=== PATIENT | female | born 1990 | race Caucasian/White ===

== ENCOUNTER → 2016-09-01 | Outpatient (REF) | payer OTHER | LOC: M LAB REF 16:42 | PROVIDERS: ATTEND Physician Assistant | DX: J03.90 Acute tonsillitis, unspecified (principal) ==

== ENCOUNTER → 2016-11-18 | Outpatient (CLI) | payer OTHER ==
[2016-11-18 17:12] LABS: ALBUMIN 3.4 GM/DL (3.2-5.2); ALBUMIN/GLOBULIN RATIO 0.87 (1.00-1.93); ALKALINE PHOSPHATASE 56 U/L (45-117); ALT/SGPT 18 U/L (12-78); ANION GAP 7 MEQ/L (8-16); AST/SGOT 9 U/L (15-37); BILIRUBIN,TOTAL 0.4 MG/DL (0.2-1.0); BLOOD UREA NITROGEN 14 MG/DL (7-18); CALCIUM LEVEL 8.7 MG/DL (8.5-10.1); CARBON DIOXIDE LEVEL 27 MEQ/L (21-32); CHLORIDE LEVEL 106 MEQ/L (98-107); CHOLESTEROL LEVEL 166 MG/DL (<200); CREATININE FOR GFR 0.74 MG/DL (0.55-1.02); FREE T4 1.01 NG/DL (0.76-1.46); GLOMERULAR FILTRATION RATE > 60.0 (>60); GLUCOSE, FASTING 88 MG/DL (70-105); POTASSIUM SERUM 4.8 MEQ/L (3.5-5.1); SODIUM LEVEL 140 MEQ/L (136-145); TOTAL PROTEIN 7.3 GM/DL (6.4-8.2); TRIGLYCERIDES LEVEL 129 MG/DL (<150)
[2016-11-18 17:59] LABS: BASO % 0.4 % (0.0-1.0); EOS # 0.1 K/mm3 (0.0-0.50); EOS % 1.2 % (0.0-3.0); LARGE UNSTAINED CELL # 0.1 K/mm3 (0.0-0.4); LARGE UNSTAINED CELL % 1.6 % (0.0-4.0); LYMPH # 3.2 K/mm3 (1.5-6.5); LYMPH % 35.7 % (24.0-44.0); MEAN CORPUSCULAR HEMOGLOBIN 27.6 pg (27.0-33.0); MEAN CORPUSCULAR HGB CONC 32.3 g/dl (32.0-36.5); MEAN CORPUSCULAR VOLUME 85.4 fl (80.0-96.0); MONO # 0.5 K/mm3 (0.0-0.8); MONO % 5.6 % (0.0-5.0); NEUTROPHILS # 4.7 K/mm3 (1.8-7.7); NEUTROPHILS % 55.5 % (36.0-66.0); PLATELET COUNT, AUTOMATED 280 k/mm3 (150-450); RED CELL DISTRIBUTION WIDTH 13.3 % (11.5-14.5); WHITE BLOOD COUNT 8.4 K/mm3 (4.0-10.0)
--- NOTE | 2016-11-18 22:37 | REP ---
Clinical: Chronic right heel pain Technique: AP, lateral, bilateral oblique views right foot . Findings: The osseous structures and joint spaces are intact and normal. Lateral view demonstrates small calcaneal heal spur without soft tissue calcifications. There is no evidence for acute fracture or dislocation. Surrounding soft tissues are unremarkable. No subcutaneous emphysema or radiodense foreign body. Impression: Small calcaneal heal spur. Otherwise relatively normal examination. No acute fracture or dislocation. Signed by Mike Wilson MD 11/18/2016 10:29 P
== END ==
LOC: M WUC 10:39
PROVIDERS: ATTEND Nurse Practitioner Family
DX: Z13.1 Encounter for screening for diabetes mellitus (principal); M77.31 Calcaneal spur, right foot; E66.9 Obesity, unspecified; Z82.49 Family history of ischemic heart disease and other diseases of the circulatory system

== ENCOUNTER → 2016-12-09 | Outpatient (REF) | payer OTHER | LOC: M LAB REF 13:25 | PROVIDERS: ATTEND Advanced Practice Midwife | DX: Z12.4 Encounter for screening for malignant neoplasm of cervix (principal) ==

== ENCOUNTER → 2017-05-28 | Outpatient (CLI) | payer OTHER | LOC: M SLEEP 19:12 | DX: G47.30 Sleep apnea, unspecified (principal) ==

== ENCOUNTER → 2017-06-17 | Outpatient (CLI) | payer OTHER | LOC: M SLEEP 20:04 | DX: G47.33 Obstructive sleep apnea (adult) (pediatric) (principal) | CPT/HCPCS: 95811 ==

== ENCOUNTER → 2018-08-23 | Outpatient (REF) | payer OTHER ==
[2018-08-27 10:22] LABS: HPV LOW VOL RFLX Negative (Negative)
== END ==
LOC: M LAB REF 17:25
PROVIDERS: ATTEND Advanced Practice Midwife
DX: Z12.4 Encounter for screening for malignant neoplasm of cervix (principal)
CPT/HCPCS: 87624; G0123

== ENCOUNTER → 2019-06-28 | Outpatient (REF) | payer OTHER | LOC: M SFHCCLAY 15:58 | PROVIDERS: ATTEND Nurse Practitioner Family | DX: J02.9 Acute pharyngitis, unspecified (principal) ==

== ENCOUNTER → 2019-11-02 | Outpatient (REF) | payer OTHER | LOC: M SFHCCLAY 12:06 | PROVIDERS: ATTEND Family Medicine | DX: J02.9 Acute pharyngitis, unspecified (principal) ==

== ENCOUNTER → 2020-04-05 | Outpatient (REF) | payer OTHER | LOC: M SFHCWAGY 17:18 | PROVIDERS: ATTEND Advanced Practice Midwife | DX: Z12.4 Encounter for screening for malignant neoplasm of cervix (principal) ==

== ENCOUNTER → 2020-09-27 | Outpatient (REF) | payer OTHER | LOC: M SFHCLERA 15:49 | PROVIDERS: ATTEND Nurse Practitioner Family | DX: R30.0 Dysuria (principal) ==

== ENCOUNTER → 2020-10-28 | Outpatient (CLI) | payer OTHER ==
--- NOTE | 2020-10-28 12:18 | REP ---
INDICATION: ACHILLES TENDINITIS COMPARISON: None. TECHNIQUE: There are four views. FINDINGS: There is no fracture or dislocation. Mineralization and joint spaces are normal. There are no calcifications or foreign bodies. There are no Achilles tendon calcifications. There is a calcaneal plantar spur. IMPRESSION: There are no Achilles tendon calcifications. There is a calcaneal plantar spur. Otherwise, negative left ankle. <Electronically signed by Mathew Barajas > 10/28/20 [id number]
== END ==
LOC: M WUC 11:44
PROVIDERS: ATTEND Physician Assistant
DX: M76.62 Achilles tendinitis, left leg (principal); M77.32 Calcaneal spur, left foot

== ENCOUNTER → 2021-02-26 | Outpatient (CLI) | payer OTHER | LOC: M LABSMTC 11:25 | PROVIDERS: ATTEND Anesthesiology | DX: Z20.828 Contact with and (suspected) exposure to other viral communicable diseases (principal); Z11.52 Encounter for screening for COVID-19 ==

== ENCOUNTER 2021-03-03 06:04 | Day surgery (SDC) | payer OTHER ==
[~2021-03-03] VITALS: Ht 170.2 cm; Wt 116.1 kg
[2021-03-03] VITALS (7 sets, daily range): BP systolic 113–139; BP diastolic 56–87
[~2021-03-03 06:04] MED LIST: LR 1,000 ML IV ONE
--- OUTSIDE RECORDS SUMMARY | 2021-03-03 06:08 | CCD | Continuity of Care Document ---
Author Author Beatriz GREENE MA Organization Unknown Address [address] [place] [address] [place] [address] Phone [phone] Care Team Providers Care Trip Follower Name Role Phone Sherlyn Hester RN OSTOMY AUTM [phone] [facility] AUTM [phone] Problems Description No Information Available Social History Type Date Description Comments Sex Unknown ETOH Use Occasionally consumes alcohol Tobacco Use Start: Unknown Patient has never smoked Tobacco Use Start: Unknown The Patient Has Never Vaped Smoking Status Reviewed: 01/31/21 The Patient Has Never Vaped Allergies and adverse reactions Description No Known Drug Allergies Medications Active Medications SIG Qnty Indications Ordering Provide r Date Ibuprofen 800mg Tablets take one tablet every 6-8hrs with food 50tabs M76.62 Karen Naidu JR. 10/27/2020 Cyclobenzaprine HCL 10mg Tablets take one at bedtime 30tabs M76.62 Pelon Goodman JR., M.D. 10/2020 Trazodone HCL 50mg Tablets take at at bedtime as needed Unknown Immunizations Description No Information Available Vital Signs Date Vital Result Comment 01/31/2021 12:47pm BP Systolic 135 mmHg BP Diastolic 83 mmHg Heart Rate 92 /min Respiratory Rate 18 /min O2 % BldC Oximetry 98 % Body Temperature 97.9 F Weight 240.00 lb Height 67 inches 5'7" BMI (Body Mass Index) 37.6 kg/m2 Pain Level 4 10/27/2020 11:14am BP Systolic 119 mmHg BP Diastolic 88 mmHg Heart Rate 88 /min Respiratory Rate 14 /min O2 % BldC Oximetry 98 % Body Temperature 97.5 F Weight 230.00 lb Height 67 inches 5'7" BMI (Body Mass Index) 36.0 kg/m2 Pain Level 8 Results Description No Information Available Procedures Date Code Description Status 01/31/2021 84963 Office/Outpatient Established Lo w MDM 20-29 Min Completed 10/27/2020 89981 Office/Outpatient Established Mo d MDM 30-39 Min Completed Medical Devices Description No Information Available Encounters Type Date Location Provider Dx Diagnosis Office Visit 01/31/2021 10:40a Main Office OBEY Nelson S76 .311A Strain msl/fasc/tnd post grp at thi lev, right thigh, init Office Visit 10/27/2020 10:45a Main Office OBEY Nelson M76 .62 Achilles tendinitis, left leg Assessments Date Code Description Provider 01/31/2021 S76.311A Strain of muscle, fa scia and tendon of the posterior muscle group at thigh level, right thigh, initial encounter OBEY Nelson 10/27/2020 M76.62 Achilles tendinitis, left leg Mi OBEY Mosquera Plan of Treatment No Information Available Functional Status Description No Information Available Mental Status Description No Information Available Referrals Refer to Reason for Referral Status Appt Date Regis Mckeon MD Left Achilles tendonitis. Closed [address] [place] [address] [phone]
--- OUTSIDE RECORDS SUMMARY | 2021-03-03 06:08 | CCD | Continuity of Care Document ---
Author Author Beatriz GREENE [place] Organization Unknown Address [address] [place] [address] [place] [address] Phone [phone] Care Team Providers Care Apprentice Photographer Name Role Phone Sherlyn Hester FLOAT REMOVER AUTM [phone] [facility] AUTM [phone] Problems Description No Information Available Social History [...] Available Procedures Date Code Description Status 01/31/2021 76964 Office/Outpatient Established Lo w MDM 20-29 Min Completed 10/27/2020 68799 Office/Outpatient Established Mo d MDM 30-39 Min [...] Mckeon MD Left Achilles tendonitis. Closed [address] [place] [address] [phone]
--- OUTSIDE RECORDS SUMMARY | 2021-03-03 06:08 | CCD | Continuity of Care Document ---
Author Author Beatriz BISHOP MD Organization Unknown Address [address] [facility], [address] [place] [address] Phone [phone] Care Team Providers Care On Site Manager Name Role Phone AUTM Unavailable Sherlyn Hester AUTM Problems Active Problems Provider Date Chronic tonsillitis Kike Bishop MD Onset: 01/01/2021 Enlargement of tonsil or adenoid Kike Bishop MD Onset: 01/01/2021 Social History Type Date Description Comments Sex Unknown ETOH Use Sociable Tobacco Use Start: Unknown Patient has never smoked Recreational Drug Use Denies Drug Use Exercise Type/Frequency Exercises regularly Allergies and adverse reactions Active Allergies Criticality Reaction | Severity Comments Date No Known Drug Allergy Unable to assess criticality 12/10/2010 Medications Description No Active Medications Immunizations Description No Information Available Vital Signs Date Vital Result Comment 02/11/2021 3:38pm Height 67 inches 5'7" Weight 255.00 lb BMI (Body Mass Index) 39.9 kg/m2 [place] Body Weight 135 lb Weight 115.668 kg BSA (Body Surface Area) 2.24 m2 01/01/2021 3:26pm BP Systolic 130 mmHg BP Diastolic 90 mmHg Heart Rate 90 /min O2 % BldC Oximetry 98 % Height 67 inches 5'7" Weight 254.00 lb BMI (Body Mass Index) 39.8 kg/m2 [place] Body Weight 135 lb Weight 115.214 kg BSA (Body Surface Area) 2.24 m2 Results Description No Information Available Procedures Date Code Description Status 02/11/2021 11092 Office/Outpatient Established Mo d MDM 30-39 Min Completed 01/01/2021 80208 Office/Outpatient Established Mo d MDM 30-39 Min Completed Medical Devices Description No Information Available Encounters Type Date Location Provider Dx Diagnosis Office Visit 02/11/2021 3:30p [facility] Karen Caldwell J35.03 Chronic tonsillitis and adenoiditis Office Visit 01/01/2021 3:15p [facility] Karen Caldwell J35.03 Chronic tonsillitis and adenoiditis Assessments Date Code Description Provider 02/11/2021 J35.03 Chronic tonsillitis and adenoidi tis Kike Bishop MD 01/01/2021 J35.03 Chronic tonsillitis and adenoidi tis Kike Bishop MD Plan of Treatment Future Appointment(s):* 03/03/2021 8:40 am - Kike Bishop MD at [facility] Functional Status Description No Information Available Mental Status Description No Information Available Referrals Description No Information Available
--- OUTSIDE RECORDS SUMMARY | 2021-03-03 06:08 | CCD ---
Continuity of Care Document (CCD) Created on: 02/11/2021 Beatriz Stewart External Reference #: [id number] : 1990 Sex: Female Author Author Beatriz BISHOP MD Organization Unknown Address [address] [facility], [address] [place] [address] Phone [phone] Care Team Providers Care Assessment Clinician Name Role Phone AUTM Unavailable Sherlyn Hester [...] lb BMI (Body Mass Index) 39.9 kg/m2 [place] Body Weight 135 lb Weight 115.668 kg BSA (Body Surface Area) 2.24 m2 01/01/2021 3:26pm BP Systolic 130 mmHg BP Diastolic 90 mmHg Heart Rate 90 /min O2 % BldC Oximetry 98 % Height 67 inches 5'7" Weight 254.00 lb BMI (Body Mass Index) 39.8 kg/m2 [place] Body Weight 135 lb Weight 115.214 kg BSA (Body Surface Area) 2.24 m2 Results Description No Information Available Procedures Date Code Description Status 01/01/2021 72935 Office/Outpatient Established Mo d MDM 30-39 Min Completed Medical Devices Description No Information Available Encounters Type Date Location Provider Dx Diagnosis Office Visit 01/01/2021 3:15p [facility] Karen Caldwell J35.03 Chronic tonsillitis and adenoiditis Assessments Date Code Description Provider 02/11/2021 J35.03 Chronic tonsillitis and adenoidi tis Kike Bishop MD 01/01/2021 J35.03 Chronic tonsillitis and adenoidi tis Kike Bishop MD Plan of Treatment Future Appointment(s):* 03/03/2021 8:40 am - Kike Bishop MD at [facility] 02/11/2021 - Kike Bishop MD* J35.03 Chronic tonsillitis and adenoiditis* Comments:* We reviewed again the risks and benefits and all questions were answered. She indicated that she would like to proceed. She will require 23 hour observation given the apnea. She will avoid any NSAID type products and Multivite for 2 weeks prior to the procedure. She does not have bleeding disorders. She is scheduled for 03/03. Functional Status Description No Information Available Mental Status Description No Information Available Referrals Description No Information Available
--- OUTSIDE RECORDS SUMMARY | 2021-03-03 06:09 | CCD | Continuity of Care Document ---
Author Author Beatriz BISHOP MD Organization Unknown Address [address] [facility], [address] [place] [address] Phone [phone] Care Team Providers Care Bi Tri Operator Name Role Phone AUTM Unavailable Sherlyn Hester AUTM Problems Active Problems Provider Date Enlargement of tonsil or adenoid Kike Bishop MD Onset: 01/01/2021 Chronic tonsillitis Kike Bishop MD Onset: 01/01/2021 Social History [...] Available Vital Signs Date Vital Result Comment 01/01/2021 3:26pm BP Systolic 130 mmHg BP Diastolic 90 mmHg Heart Rate 90 /min O2 % BldC Oximetry 98 % Height 67 inches 5'7" Weight 254.00 lb BMI (Body Mass Index) 39.8 kg/m2 [place] Body Weight 135 lb Weight 115.214 kg BSA (Body Surface Area) 2.24 m2 08/06/2020 12:59pm Height 67 inches 5'7" Weight 230.00 lb BMI (Body Mass Index) 36.0 kg/m2 [place] Body Weight 135 lb Weight 104.328 kg BSA (Body Surface Area) 2.15 m2 Results Description No Information Available Procedures Date Code Description Status 01/01/2021 07613 Office/Outpatient Established Mo d MDM 30-39 Min Completed 08/06/2020 93830 Office/Outpatient New Low MDM 30 -44 Minutes Completed Medical Devices Description No Information Available Encounters Type Date Location Provider Dx Diagnosis Office Visit 01/01/2021 3:15p [facility] Karen Caldwell J35.03 Chronic tonsillitis and adenoiditis J35.3 Hypertrophy of tonsils with hypertrophy of adenoids Office Visit 08/06/2020 1:00p [facility] Jude Stroud MD J35.01 Chronic tonsillitis G47.33 Obstructive sleep apnea ([place] lt) (pediatric) Assessments Date Code Description Provider 01/01/2021 J35.03 Chronic tonsillitis and adenoidi tis Kike Bishop MD 01/01/2021 J35.3 Hypertrophy of tonsils with hype rtrophy of adenoids Kike Bishop MD 08/06/2020 J35.01 Chronic tonsillitis Jude iyer MD 08/06/2020 G47.33 Obstructive sleep apnea (adult) (pediatric) Jude Stroud MD Plan of Treatment No Information Available Functional Status Description No Information Available Mental Status Description No Information Available Referrals Refer to Dr Reason for Referral Status Appt Date Jude Stroud M.D. 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
--- OUTSIDE RECORDS SUMMARY | 2021-03-03 06:09 | CCD ---
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 Name Role Phone JC, Gage BARNHART Unavailable Unavailable LETTIERE, Gage BARNHART Unavailable Unavailable LETTIERE, Gage BARNHART Unavailable Unavailable LETTIERE, Gage BARNHART Unavailable Unavailable LETTIERE, Gage BARNHART Unavailable Unavailable LETTIERE, Gage BARNHART Unavailable Unavailable LETTIERE, Gage BARNHART Unavailable Unavailable LETTIERE, Gage BARNHART Unavailable Unavailable LETTIERE, Gage BARNHART Unavailable Unavailable LETTIERE, Gage BARNHART Unavailable Unavailable LETTIERE, Gage BARNHART Unavailable Unavailable LETTIERE, Gage BARNHART Unavailable Unavailable LETTIERE, Gage BARNHART Unavailable Unavailable LETTIERE, Gage BARNHART Unavailable Unavailable LETTIERE, Gage BARNHART Unavailable Unavailable LETTIERE, Gage BARNHART Unavailable Unavailable LETTIERE, Gage BARNHART Unavailable Unavailable LETTIERE, Gage BARNHART Unavailable Unavailable LETTIERE, Gage BARNHART Unavailable Unavailable LETTIERE, A LIZBETH PA Unavailable Unavailable LETTIERE, A LIZBETH PA Unavailable Unavailable LETTIERE, A LIZBETH PA Unavailable Unavailable LETTIERE, A LIZBETH PA Unavailable Unavailable LETTIERE, A LIZBETH PA Unavailable Unavailable LETTIERE, A LIZBETH PA Unavailable Unavailable LETTIERE, A LIZBETH PA Unavailable Unavailable LETTIERE, A LIZBETH PA Unavailable Unavailable LETTIERE, A LIZBETH PA Unavailable Unavailable LETTIERE, A LIZBETH PA Unavailable Unavailable LETTIERE, A LIZBETH PA Unavailable Unavailable LETTIERE, A LIZBETH PA Unavailable Unavailable Alanna Stroud MD Unavailable Unavailable Alanna Stroud MD Unavailable Unavailable Alanna Stroud MD Unavailable Unavailable Alanna Struod MD Unavailable Unavailable Alanna Stroud MD Unavailable Unavailable Alanna Stroud MD Unavailable Unavailable Alanna Stroud MD Unavailable Unavailable Alanna Stroud MD Unavailable Unavailable Alanna Stroud MD Unavailable Unavailable Alanna Stroud MD Unavailable Unavailable Alanna Stroud MD Unavailable Unavailable Alanna Stroud MD Unavailable Unavailable Alanna Stroud MD Unavailable Unavailable Alanna Stroud MD Unavailable Unavailable Alanna Stroud MD Unavailable Unavailable Alanna Stroud MD Unavailable Unavailable Alanna Stroud MD Unavailable Unavailable Alanna Stroud MD Unavailable Unavailable Alanna Stroud MD Unavailable Unavailable Sheehan, M Barratt PA Unavailable Unavailable Sheehan, M Barratt PA Unavailable Unavailable Sheehan, M Barratt PA Unavailable Unavailable Sheehan, M Barratt PA Unavailable Unavailable Sheehan, M Barratt PA Unavailable Unavailable Sheehan, M Barratt PA Unavailable Unavailable Sheehan, M Barratt PA Unavailable Unavailable Sheehan, M Barratt PA Unavailable Unavailable Sheehan, M Barratt PA Unavailable Unavailable Sheehan, M Barratt PA Unavailable Unavailable Sheehan, M Barratt PA Unavailable Unavailable Sheehan, M Barratt PA Unavailable Unavailable Sheehan, M Barratt PA Unavailable Unavailable Sheehan, M Barratt PA Unavailable Unavailable Sheehan, M Barratt PA Unavailable Unavailable Sheehan, M Barratt PA Unavailable Unavailable Sheehan, M Barratt PA Unavailable Unavailable Sheehan, M Barratt PA Unavailable Unavailable Sheehan, M Barratt PA Unavailable Unavailable Sheehan, M Barratt PA Unavailable Unavailable Sheehan, M Barratt PA Unavailable Unavailable Sheehan, M Barratt PA Unavailable Unavailable Sheehan, M Barratt PA Unavailable Unavailable Sheehan, M Barratt PA Unavailable Unavailable Sheehan, M Barratt PA Unavailable Unavailable Sheehan, M Barratt PA Unavailable Unavailable Sheehan, M Barratt PA Unavailable Unavailable Sheehan, M Barratt PA Unavailable Unavailable Sheehan, Karen Armando PA Unavailable Unavailable Dario, C Kike PH.D., M.D. Unavailable Unavailable Dario, C Kike PH.D., M.D. Unavailable Unavailable Dario, C Kike PH.D., M.D. Unavailable Unavailable Dario, C Kike PH.D., M.D. Unavailable Unavailable Dario, C Kike PH.D., M.D. Unavailable Unavailable Dario, C Kike PH.D., M.D. Unavailable Unavailable Dario, C Kike PH.D., M.D. Unavailable Unavailable Dario, C Kike PH.D., M.D. Unavailable Unavailable Dario, C Kike PH.D., M.D. Unavailable Unavailable Dario, C Kike PH.D., M.D. Unavailable Unavailable Dario, C Kike PH.D., M.D. Unavailable Unavailable Dario, C Kike PH.D., M.D. Unavailable Unavailable Dario, C Kike PH.D., M.D. Unavailable Unavailable Dario, C Kike PH.D., M.D. Unavailable Unavailable Dario, C Kike PH.D., M.D. Unavailable Unavailable Dario, C Kike PH.D., M.D. Unavailable Unavailable Dario, C Kike PH.D., M.D. Unavailable Unavailable Dario, C Kike PH.D., M.D. Unavailable Unavailable Dario, C Kike PH.D., M.D. Unavailable Unavailable Dario, C Kike PH.D., M.D. Unavailable Unavailable Dario, C Kike PH.D., M.D. Unavailable Unavailable Dario, C Kike PH.D., M.D. Unavailable Unavailable Dario, C Kike PH.D., M.D. Unavailable Unavailable Dario, C Kike PH.D., M.D. Unavailable Unavailable Dario, C Kike PH.D., M.D. Unavailable Unavailable Dario, C Kike PH.D., M.D. Unavailable Unavailable Dario, C Kike PH.D., M.D. Unavailable Unavailable Dario, C Kike PH.D., M.D. Unavailable Unavailable Dario, C Kike PH.D., M.D. Unavailable Unavailable Dario, C Kike PH.D., M.D. Unavailable Unavailable Dario, C Kike PH.D., M.D. Unavailable Unavailable Dario, C Kike PH.D., M.D. Unavailable Unavailable Dario, C Kike PH.D., M.D. Unavailable Unavailable Dario, C Kike PH.D., M.D. Unavailable Unavailable Dario, C Kike PH.D., M.D. Unavailable Unavailable Dario, C Kike PH.D., M.D. Unavailable Unavailable Dario, C Kike PH.D., M.D. Unavailable Unavailable Dario, C Kike PH.D., M.D. Unavailable Unavailable Dario, C Kike PH.D., M.D. Unavailable Unavailable Dario, C Kike PH.D., M.D. Unavailable Unavailable Dario, C Kike PH.D., M.D. Unavailable Unavailable Dario, C Kike PH.D., M.D. Unavailable Unavailable Dario, C Kike PH.D., M.D. Unavailable Unavailable Dario, C Kike PH.D., M.D. Unavailable Unavailable Dario, C Kike PH.D., M.D. Unavailable Unavailable Dario, C Kike PH.D., M.D. Unavailable Unavailable Dario, C Kkie PH.D., M.D. Unavailable Unavailable Dario, C Kike PH.D., M.D. Unavailable Unavailable Dario, C Kike PH.D., M.D. Unavailable Unavailable Dario, C Kike PH.D., M.D. Unavailable Unavailable Dario, C Kike PH.D., M.D. Unavailable Unavailable Dario, C Kike PH.D., M.D. Unavailable Unavailable Dario, C Kike PH.D., M.D. Unavailable Unavailable Dario, C Kike PH.D., M.D. Unavailable Unavailable Dario, C Kike PH.D., M.D. Unavailable Unavailable Dario, C Kike PH.D., M.D. Unavailable Unavailable Dario, C Kike PH.D., M.D. Unavailable Unavailable Dario, C Kike PH.D., M.D. Unavailable Unavailable Dario, C Kike PH.D., M.D. Unavailable Unavailable Dario, C Kike PH.D., M.D. Unavailable Unavailable Dario, C Kike PH.D., M.D. Unavailable Unavailable Dario, C Kike PH.D., M.D. Unavailable Unavailable Dario, C Kike PH.D., M.D. Unavailable Unavailable Dario, C Kike PH.D., M.D. Unavailable Unavailable Dario, C Kike PH.D., M.D. Unavailable Unavailable Dario, C Kike PH.D., M.D. Unavailable Unavailable Dario, Dimitri Stokes PH.D., M.D. Unavailable Unavailable Dario, Dimitri Stokes PH.D., M.D. Unavailable Unavailable Dario, Dimitri Stokes PH.D., M.D. Unavailable Unavailable Dario, Dimitri Stokes PH.D., M.D. Unavailable Unavailable Dario, Dimitri Stokes PH.D., M.D. Unavailable Unavailable Dario, Dimitri Stokes PH.D., M.D. Unavailable Unavailable Dario, Dimitri Stokes PH.D., M.D. Unavailable Unavailable Dario, Dimitri Stokes PH.D., M.D. Unavailable Unavailable Dario, Dimitri Stokes PH.D., M.D. Unavailable Unavailable Dario, Dimitri Stokes PH.D., M.D. Unavailable Unavailable Dario, Dimitri Stokes PH.D., M.D. Unavailable Unavailable Dario, Dimitri Stokes PH.D., M.D. Unavailable Unavailable Draio, Dimitri Stokes PH.D., M.D. Unavailable Unavailable Dario, Dimitri Stokes PH.D., M.D. Unavailable Unavailable Dario, Dimitri Stokes PH.D., M.D. Unavailable Unavailable Dario, Dimitri Stokes PH.D., M.D. Unavailable Unavailable Dario, Dimitri Stokes PH.D., M.D. Unavailable Unavailable Re-disclosure Warning The records that you are about to access may contain information from federally-assisted alcohol or drug abuse programs. If such information is present, then the following federally mandated warning applies: This information has been disclosed to you from records protected by federal confidentiality rules (42 CFR part 2). The federal rules prohibit you from making any further disclosure of this information unless further disclosure is expressly permitted by the written consent of the person to whom it pertains or as otherwise permitted by 42 CFR part 2. A general authorization for the release of medical or other information is NOT sufficient for this purpose. The Federal rules restrict any use of the information to criminally investigate or prosecute any alcohol or drug abuse patient.The records that you are about to access may contain highly sensitive health information, the redisclosure of which is protected by Article 27-F of the [facility] Public Health law. If you continue you may have access to information: Regarding HIV / AIDS; Provided by facilities licensed or operated by the [facility] Office of Mental Health; or Provided by the [facility] Office for People With Developmental Disabilities. If such information is present, then the following [facility] mandated warning applies: This information has been disclosed to you from confidential records which are protected by state law. State law prohibits you from making any further disclosure of this information without the specific written consent of the person to whom it pertains, or as otherwise permitted by law. Any unauthorized further disclosure in violation of state law may result in a fine or fdc sentence or both. A general authorization for the release of medical or other information is NOT sufficient authorization for further disc losure. Family History Family Member Name Family Member Gender Family Member Status Date o f Status Description Data Source(s) Unknown Unknown Problem [facility] Unknown Unknown Problem MED[facility] ([facility] father Unknown Male Problem [facility] ([facility] Unknown Male Problem [facility] ([facility] htn heart disease Encounters Encounter Providers Location Date Indications Data Source(s ) Outpatient Attender: Kike Bishop PH.Manish., MDarrick. Brandon/Tony/Gage butler/Hima 02/11/2021 02:30:00 PM EST MEDENT ([facility], ) Outpatient Attender: LIZBETH hu 01/31/2021 09:40:00 AM EST MEDENT ([facility], [facility]) Outpatient Attender: Kike Bishop PH.D., MDarrick. Cricket butler/Reinjeremie 01/01/2021 03:15:00 PM EDT MEDENT [facility] OFFICE OUTPATIENT VISIT 15 MINUTES Attender: Tr BARNHART Physical Therapy 11/19/2020 03:30:00 PM EDT MEDENT ([facility] ) Outpatient Attender: Tr BARNHART Physical Therapy 10:15:00 AM EDT MEDENT ([facility] ) Outpatient Attender: LIZBETH hu 10/27/2020 10:45:00 AM EDT MEDENT ([facility], [facility]) Outpatient [facility], [facility] [address] 09/26/2020 12:00:00 AM EDT eCW1 ([facility]) Unknown [address] [facility] [address] 09/26/2020 12:00:00 AM EDT eCW1 ([facility]) Outpatient Attender: Jude Taylor/Tony/Donato/Re indl 08/06/2020 01:00:00 PM EDT MEDENT ([facility] ([facility]) [facility]Center Procedure [address] [place] [address] 05/07/2020 12:00:00 AM EST eCW1 ([facility]) Unknown [address] [facility] [address] 04/16/2020 12:00:00 AM EST eCW1 ([facility]) Outpatient [address] [facility] [address] 04/05/2020 12:00:00 AM EST eCW1 ([facility]) Immunizations Vaccine Date Status Description Data Source(s) COVID-19 VACCINE Pfizer 01/23/2021 12:00:00 AM EDT completed [facility] Vaccine Series Complete: YESThis Data wa s Submitted to [facility] Via [employer]. COVID-19 VACCINE Pfizer 06/12/2020 12:00:00 AM EDT completed [facility] Vaccine Series Complete: YESThis Data wa s Submitted to [facility] Via [employer]. COVID-19 VACCINE Pfizer 05/22/2020 12:00:00 AM EST completed [facility] Vaccine Series Complete: NOThis Data was Submitted to [facility] Via [employer]. Medications Medication Brand Name Start Date Product Form Dose Route Admi nistrative Instructions Pharmacy Instructions Status Indications Reaction Description Data Source(s) Cyclobenzaprine hydrochloride 10 MG Oral Tablet CYCLOBENZAPR INE HCL 01/31/2021 12:00:00 AM EST tablet 30 TAKE ONE TABLET BY MOUTH AT BEDTIME TAKE ONE TABLET BY MOUTH AT BEDTIME SOLD: 02/04/2021 [facility] Ibuprofen 800 MG Oral Tablet Ibuprofen 10/27/2020 12:00:00 AM EDT active MEDENT ([facility], [facility]) Cyclobenzaprine hydrochloride 10 MG Oral Tablet Cyclobenzapr ine HCL 10/27/2020 12:00:00 AM EDT active M EDENT ([facility], [facility]) 800 mg 10/27/2020 12:00:00 AM EDT tablet 50 TAKE ONE TABLET BY MOUTH EVERY 6 TO 8 HOURS WITH FOOD TAKE ONE TABLET BY MOUTH EVERY 6 TO 8 HOURS WITH FOOD SOLD: 10/27/2020 [facility] Cyclobenzaprine hydrochloride 10 MG Oral Tablet CYCLOBENZAPR INE HCL 10/27/2020 12:00:00 AM EDT tablet 14 TAKE ONE TABLET BY MOUTH AT BEDTIME TAKE ONE TABLET BY MOUTH AT BEDTIME SOLD: 10/27/2020 [facility] Fluconazole 150 MG Oral Tablet [Diflucan] Diflucan 150 MG Di flucan 150 MG 09/26/2020 12:00:00 AM EDT 1.0 {tablet} active Diflucan 150 MG eCW1 ([facility]) 150 mg 09/26/2020 12:00:00 AM EDT tablet 2 TAKE ONE TABLET BY MOUTH EVERY DAY, MAY REPEAT IN 3 DAYS TAKE ONE TABLET BY MOUTH EVERY DAY, MAY REPEAT IN 3 DAYS SOLD: 09/26/2020 [facility] Fluconazole 150 MG Oral Tablet [Diflucan] Diflucan 150 MG Di flucan 150 MG 09/26/2020 12:00:00 AM EDT 1.0 {tablet} active Diflucan 150 MG eCW1 ([facility]) 75 mg 07/26/2020 12:00:00 AM EDT tablet 70 TAKE 1 TABLET BY MOUTH DAILY FOR 7 DAYS THEN TAKE 1 TABLET TWO TIMES A DAY FOR 7 DAYS THEN TAKE 1 TABLET IN THE MORNING AND 2 TABLETS IN THE EVENING FOR 7 DAYS THEN TAKE 2 TABLETS TWO TIMES A DAY TAKE 1 TABLET BY MOUTH DAILY FOR 7 DAYS THEN TAKE 1 TABLET TWO TIMES A DAY FOR 7 DAYS THEN TAKE 1 TABLET IN THE MORNING AND 2 TABLETS IN THE EVENING FOR 7 DAYS THEN TAKE 2 TABLETS TWO TIMES A DAY SOLD: 07/29/2020 [facility] Naltrexone hydrochloride 50 MG Oral Tablet NALTREXONE HCL 07/25/2020 12:00:00 AM EDT tablet 30 TAKE ONE-QUARTER TABLET BY MOUTH ONCE DAILY FOR 7 DAYS, THEN TWO TIMES A DAY FOR 7 DAYS, THEN TAKE ONE-HALF TABLET TWO TIMES A DAY TAKE ONE- QUARTER TABLET BY MOUTH ONCE DAILY FOR 7 DAYS, THEN TWO TIMES A DAY FOR 7 DAYS, THEN TAKE ONE-HALF TABLET TWO TIMES A DAY SOLD: 07/29/2020 [facility] Naltrexone hydrochloride 50 MG Oral Tablet Naltrexone HCl 50 MG Naltrexone HCl 50 MG 07/24/2020 12:00:00 AM EDT suspended Naltrexone HCl 50 MG eCW1 ([facility]) Naltrexone hydrochloride 50 MG Oral Tablet Naltrexone HCl 50 MG Naltrexone HCl 50 MG 07/24/2020 12:00:00 AM EDT suspended Naltrexone HCl 50 MG eCW1 ([facility]) Bupropion Hydrochloride 75 MG Oral Tablet buPROPion HC l 75 MG buPROPion HCl 75 MG 07/24/2020 12:00:00 AM EDT suspended buPROPion HCl 75 MG eCW1 ([facility]) Bupropion Hydrochloride 75 MG Oral Tablet buPROPion HC l 75 MG buPROPion HCl 75 MG 07/24/2020 12:00:00 AM EDT suspended buPROPion HCl 75 MG eCW1 ([facility]) Insurance Providers Payer name Policy type / Coverage type Policy ID Covered democrat ID Covered democrat's relationship to meyer Policy Meyer [facility] [id number] Self [id number] [facility] BCBS Medigap Part B [id number] Self [id number] [facility] [place] [id number] [facility] [id number] SP [id number] [facility] Health Maintenance Organization ([facility]) [id number] Self [id number] [facility] Health Maintenance Organization ([facility]) [id number] [facility] [id number] SP [id number] [facility] Health Maintenance Organization ([facility]) [id number] [facility] Health Maintenance Organization (HMO) [id number] Self [id number] ANSI-Commercial [id number] ANSI-Not a Secondary Insurance [id number] [employer] [id number] SP [id number] [employer] [id number] Self [id number] [employer] [id number] Self [id number] [employer] [id number] Self [id number] [employer] [id number] SP [id number] [employer] SELF [id number] S [id number] [employer] [id number] Self BCBS [place] PPO [id number] SP [id number] [facility] [id number] SP [id number] ANSI-Not a Secondary Insurance [id number] ANSI-Commercial [id number] [facility] Commercial [id number] Self [id number] ANSI-Commercial [id number] ANSI-Not a Secondary Insurance [id number] ANSI-Not a Secondary Insurance [id number] ANSI-Commercial [id number] Problems, Conditions, and Diagnoses Code Display Name Description Problem Type Effective Dates Data Source(s) J35.3 Enlargement of tonsil or adenoid Enlargement of tonsil or adenoid Problem 01/01/2021 12:00:00 AM EDT MEDENT ([facility], ) J35.01 Chronic tonsillitis Chronic tonsillitis Problem 1 12:00:00 AM EDT MEDENT (Health system) J35.1 [id number] Hypertrophy of tonsils Problem 07/24/2020 12 :00:00 AM EDT eCW1 ([facility]) J35.8 [id number] Tonsil stone Problem 07/24/2020 12:00:00 AM EDT eCW1 ([facility]) Surgeries/Procedures Procedure Description Date Indications Data Source(s) OFFICE OUTPATIENT VISIT 25 MINUTES 02/11/2021 12:00:00 AM EST MEDENT ([facility], ) OFFICE OUTPATIENT VISIT 15 MINUTES 01/31/2021 12:00:00 AM EST MEDENT ([facility]) OFFICE OUTPATIENT VISIT 25 MINUTES 01/01/2021 12:00:00 AM EDT MEDENT ([facility], ) OFFICE OUTPATIENT VISIT 15 MINUTES 11/19/2020 12:00:00 AM EDT MEDENT ([facility]) OFFICE OUTPATIENT NEW 45 MINUTES 10/29/2020 12:00:00 A M EDT MEDENT ([facility]) OFFICE OUTPATIENT VISIT 25 MINUTES 10/27/2020 12:00:00 AM EDT MEDENT ([facility]) OFFICE OUTPATIENT NEW 30 MINUTES 08/06/2020 12:00:00 A M EDT MEDENT ([facility]) Results ID Date Data Source [id number] 12/23/2020 12:00:00 AM EDT [facility] Name Value Range Interpretation Code Description Data Kezia rce(s) Supporting Document(s) SARS-CoV2 Rapid Antigen Negative [facility] This lab was ordered by [facility] d reported by [facility]. ID Date Data Source URINE CULTURE 09/27/2020 12:00:00 AM EDT eCW1 ([facility]) Name Value Range Interpretation Code Description Data Kezia rce(s) Supporting Document(s) URINE CULTURE eCW1 ([facility]) ID Date Data Source [id number] 04/17/2020 12:00:00 AM EST [facility] Name Value Range Interpretation Code Description Data Kezia rce(s) Supporting Document(s) 2019 Novel Coronavirus RNA Negative [facility] This lab was reported by [facility]. Procedure Social History Code Duration Value Status Description Data Source(s ) Smoking 10/27/2020 12:00:00 AM EDT Patient has never smoked co mpleted Patient has never smoked MEDENT ([facility], [facility]) Smoking 09/26/2020 12:00:00 AM EDT Never Smoker completed Never S moker eCW1 ([facility]) Smoking 09/26/2020 12:00:00 AM EDT Never Smoker completed Never S moker eCW1 ([facility]) Smoking 05/06/2020 12:00:00 AM EST Never Smoker completed Never S moker eCW1 ([facility]) Smoking 04/05/2020 12:00:00 AM EST Never Smoker completed Never S moker eCW1 ([facility]) Smoking 04/05/2020 12:00:00 AM EST Never Smoker completed Never S segundo eCW1 ([facility]) Vital Signs ID Date Data Source UNK Name Value Range Interpretation Code Description Data Source(s) Body weight 115.668 kg 115.668 kg [facility] Body surface area Derived from formula 2.24 m2 2.24 m2 [facility] (Health system) Body height 67 [in_i] 67 [in_i] [facility] ([facility]) 5'7" Body weight 255.00 [lb_av] 255.00 [lb_av] [facility] T (Health system) Body mass index (BMI) [Ratio] 39.9 kg/m2 39.9 k g/m2 [facility] (Health system) [place] body weight 135 [lb_av] 135 [lb_av] [facility] T (Health system) Heart rate 92 /min 92 /min [facility] ([facility], [facility]) Systolic blood pressure 135 mm[Hg] 135 mm[Hg] M EDENT ([facility], [facility]) Respiratory rate 18 /min 18 /min [facility] ( [facility], [facility]) Diastolic blood pressure 83 mm[Hg] 83 mm[Hg] [facility] ([facility], [facility]) Body weight 240.00 [lb_av] 240.00 [lb_av] MEDEN T ([facility]) Oxygen saturation in Arterial blood by Pulse oximetry 98 % 98 % [facility] ([facility], [facility]) Body temperature 97.9 [degF] 97.9 [degF] [facility] ([facility], [facility]) Body mass index (BMI) [Ratio] 37.6 kg/m2 37.6 k g/m2 [facility] ([facility], [facility]) Body height 67 [in_i] 67 [in_i] MEDENT ([facility], [facility]) 5'7" Body weight 254.00 [lb_av] 254.00 [lb_av] [facility] T (Health system) Body mass index (BMI) [Ratio] 39.8 kg/m2 39.8 k g/m2 [facility] (Health system) [place] body weight 135 [lb_av] 135 [lb_av] [facility] T (Health system) Body weight 115.214 kg 115.214 kg [facility] Body surface area Derived from formula 2.24 m2 2.24 m2 [facility] (Health system) Systolic blood pressure 130 mm[Hg] 130 mm[Hg] M EDENT (Health system) Diastolic blood pressure 90 mm[Hg] 90 mm[Hg] [facility] (Health system) Body height 67 [in_i] 67 [in_i] [facility] 5'7" Heart rate 90 /min 90 /min [facility] ([facility]) Oxygen saturation in Arterial blood by Pulse oximetry 98 % 98 % [facility] (Health system) Body temperature 97.3 [degF] 97.3 [degF] [facility] ([facility]) Body height 67.75 [in_i] 67.75 [in_i] [facility] ([facility]) 5'7.75" Body weight 245.38 [lb_av] 245.38 [lb_av] MEDEN T ([facility]) Body mass index (BMI) [Ratio] 37.6 kg/m2 37.6 k g/m2 [facility] ([facility]) Systolic blood pressure 119 mm[Hg] 119 mm[Hg] M EDENT ([facility], [facility]) Diastolic blood pressure 88 mm[Hg] 88 mm[Hg] MEDENT ([facility], [facility]) Body mass index (BMI) [Ratio] 36.0 kg/m2 36.0 k g/m2 [facility] ([facility], [facility]) Heart rate 88 /min 88 /min MED[facility] ([facility], [facility]) Body height 67 [in_i] 67 [in_i] MED[facility] ([facility], [facility]) 5'7" Respiratory rate 14 /min 14 /min MED[facility] ( [facility], [facility]) Oxygen saturation in Arterial blood by Pulse oximetry 98 % 98 % [facility] ([facility]) Body temperature 97.5 [degF] 97.5 [degF] MEDENT ([facility]) Body weight 230.00 [lb_av] 230.00 [lb_av] MEDEN T ([facility]) Body weight 250 [lb_av] 250 [lb_av] eCW1 ([facility]) Body height 67.5 [in_i] 67.5 [in_i] eCW1 ([facility]) Body mass index (BMI) [Ratio] 38.57 kg/m2 38.57 kg/m2 eCW1 ([facility]) Heart rate 78 /min 78 /min eCW1 ([facility]) Respiratory rate 18 /min 18 /min eCW1 ([facility]) Body temperature 97.7 [degF] 97.7 [degF] eCW1 ( [facility]) Systolic blood pressure 123 mm[Hg] 123 mm[Hg] e CW1 ([facility]) Diastolic blood pressure 83 mm[Hg] 83 mm[Hg] eCW1 ([facility]) Body weight 104.328 kg 104.328 kg [facility]) Body surface area Derived from formula 2.15 m2 2.15 m2 [facility] (Health system) Body weight 230.00 [lb_av] 230.00 [lb_av] [facility] T (Health system) [place] body weight 135 [lb_av] 135 [lb_av] [facility] T (Health system) Body mass index (BMI) [Ratio] 36.0 kg/m2 36.0 k g/m2 [facility] Body weight 104.328 kg 104.328 kg [facility] ([facility]) Body surface area Derived from formula 2.15 m2 2.15 m2 [facility] (Health system) Body height 67 [in_i] 67 [in_i] [facility] ([facility]) 5'7" Body height 67 [in_i] 67 [in_i] MED[facility] ([facility]) 5'7" Body weight 230.00 [lb_av] 230.00 [lb_av] [facility] Body mass index (BMI) [Ratio] 36.0 kg/m2 36.0 k g/m2 [facility] (Health system) [place] body weight 135 [lb_av] 135 [lb_av] [facility] T (Health system) Body weight 248.2 [lb_av] 248.2 [lb_av] eCW1 ([facility]) Body weight 112.58 kg 112.58 kg W1 ([facility]) Body mass index (BMI) [Ratio] 38.3 kg/m2 38.3 k g/m2 W1 ([facility]) Body height 67.5 [in_i] 67.5 [in_i] eCW1 ([facility]) Diastolic blood pressure 90 mm[Hg] 90 mm[Hg] eCW1 ([facility]) Systolic blood pressure 130 mm[Hg] 130 mm[Hg] e CW1 ([facility]) Body weight 246.4 [lb_av] 246.4 [lb_av] eCW1 ([facility]) Body weight 111.77 kg 111.77 kg eCW1 ([facility]) Body height 67.5 [in_i] 67.5 [in_i] eCW1 ([facility]) Body mass index (BMI) [Ratio] 38.02 kg/m2 38.02 kg/m2 W1 ([facility]) Systolic blood pressure 130 mm[Hg] 130 mm[Hg] e CW1 ([facility]) Diastolic blood pressure 86 mm[Hg] 86 mm[Hg] eCW1 ([facility]) Patient Treatment Plan of Care Planned Activity Planned Date Details Description Data Source (s) Fluconazole 150 MG Oral Tablet [Diflucan] 09/26/2020 12:00:00 AM ED T eCW1 ([facility]) Fluconazole 150 MG Oral Tablet [Diflucan] 09/26/2020 12:00:00 AM ED T eCW1 ([facility])
--- OUTSIDE RECORDS SUMMARY | 2021-03-03 06:09 | CCD ---
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 Name Role Phone AUTM Unavailable Sherlyn Hester AUTM [phone] Problems Active Problems Provider Date Chronic tonsillitis [...] lb BMI (Body Mass Index) 39.8 kg/m2 [place] Body Weight 135 lb Weight 115.214 kg BSA (Body Surface Area) 2.24 m2 08/06/2020 12:59pm Height 67 inches 5'7" Weight 230.00 lb BMI (Body Mass Index) 36.0 kg/m2 [place] Body Weight 135 lb Weight 104.328 kg BSA (Body Surface Area) 2.15 m2 Results Description No Information Available Procedures Date Code Description Status 01/01/2021 30579 Office/Outpatient Established Mo d MDM 30-39 Min Completed 08/06/2020 39623 Office/Outpatient New Low MDM 30 -44 Minutes Completed Medical Devices Description No Information Available Encounters Type Date Location Provider Dx Diagnosis Office Visit 01/01/2021 3:15p [facility] Karen Caldwell J35.03 Chronic tonsillitis and adenoiditis Office Visit 08/06/2020 1:00p [facility] Jude Stroud MD J35.01 Chronic tonsillitis G47.33 Obstructive sleep apnea ([place]) (pediatric) Assessments Date Code Description Provider 01/01/2021 J35.03 Chronic tonsillitis and adenoidi tis Kike Bishop MD 08/06/2020 J35.01 Chronic tonsillitis Jude iyer MD 08/06/2020 G47.33 Obstructive sleep apnea (adult) (pediatric) Jude Stroud MD Plan of Treatment No Information Available Functional Status Description No Information Available Mental Status Description No Information Available Referrals Refer to Reason for Referral Status Appt Date Jude Stroud M.D. TAX COMPLIANCE AGENT HYPERTROPHY OF TONSILS REF J ALBERRY IN S UMR Closed 08/06/2020 [facility] [address] [address] [phone]
--- OUTSIDE RECORDS SUMMARY | 2021-03-03 06:09 | CCD | Continuity of Care Document ---
Author Author Beatriz BISHOP MD Organization Unknown Address [address], [address] [place] [address] Phone [phone] Care Team Providers Care Facility Practice Specialist Name Role Phone AUTM Unavailable Sherlyn Hester AUTM [phone] Problems Active Problems Provider Date Enlargement of [...] lb BMI (Body Mass Index) 39.8 kg/m2 [place] Body Weight 135 lb Weight 115.214 kg BSA (Body Surface Area) 2.24 m2 08/06/2020 12:59pm Height 67 inches 5'7" Weight 230.00 lb BMI (Body Mass Index) 36.0 kg/m2 [place] Body Weight 135 lb Weight 104.328 kg BSA (Body Surface Area) 2.15 m2 Results Description No Information Available Procedures Date Code Description Status 01/01/2021 36560 Office/Outpatient Established Mo d MDM 30-39 Min Completed 08/06/2020 65343 Office/Outpatient New Low MDM 30 -44 Minutes Completed Medical Devices Description No Information Available Encounters Type Date Location Provider Dx Diagnosis Office Visit 01/01/2021 3:15p [facility] Karen Caldwell J35.03 Chronic tonsillitis and adenoiditis J35.3 Hypertrophy of tonsils with hypertrophy of adenoids Office Visit 08/06/2020 1:00p [facility] Jude Stroud MD J35.01 Chronic [...] Referral Status Appt Date Jude Stroud M.D. SUPERVISOR INSPECTING HYPERTROPHY OF TONSILS REF J ALBERR Y INS UMR Scheduled 08/06/2020 [facility] [address] [address] [phone]
--- OUTSIDE RECORDS SUMMARY | 2021-03-03 06:09 | CCD | Continuity of Care Document ---
Author Author Beatriz BISHOP MD Organization Unknown Address [address], [address] [place] [address] Phone [phone] Care Team Providers Care Bakery Machine Mechanic Supervisor Name Role Phone AUTM Unavailable Sherlyn [...] lb BMI (Body Mass Index) 39.8 kg/m2 [place] Body Weight 135 lb Weight 115.214 kg BSA (Body Surface Area) 2.24 m2 08/06/2020 12:59pm Height 67 inches 5'7" Weight 230.00 lb BMI (Body Mass Index) 36.0 kg/m2 [place] Body Weight 135 lb Weight 104.328 kg BSA (Body Surface Area) 2.15 m2 Results Description No Information Available Procedures Date Code Description Status 01/01/2021 21811 Office/Outpatient Established Mo d MDM 30-39 Min Completed 08/06/2020 44080 Office/Outpatient New Low MDM 30 -44 Minutes Completed Medical Devices Description No Information Available Encounters Type Date Location Provider Dx Diagnosis Office Visit 01/01/2021 3:15p [facility] Karen Caldwell J35.03 Chronic tonsillitis and adenoiditis J35.3 Hypertrophy of tonsils with hypertrophy of adenoids Office Visit 08/06/2020 1:00p [facility] Jude Stroud MD J35.01 [...] Referral Status Appt Date Jude Stroud M.D. WIRE FENCE BUILDER HYPERTROPHY OF TONSILS REF J ALBERR Y INS UMR Scheduled 08/06/2020 [facility] [address] [address] [phone]
[2021-03-03] MEDS ORDERED: BUPIVACAINE/EPIN 0.5% 30 ML VIAL As Ordered ONE (07:12)
[2021-03-03] MEDS ORDERED: OXYMETAZOLINE 0.05% NASAL SPRAY (AFRIN) As Ordered ONE (07:12)
[2021-03-03] MEDS ORDERED: ROCURONIUM BROMIDE 50 MG/5 ML VIAL As Ordered ONE (07:15)
[2021-03-03] MEDS ORDERED: propofoL 200 MG/20 ML VIAL As Ordered ONE (07:15)
[2021-03-03] MEDS ORDERED: LIDOCAINE 2% 100MG/5ML SDV (FOR ANES.) As Ordered ONE (07:15)
[2021-03-03] MEDS ORDERED: fentaNYL 250 MCG/5 ML INJECTION (J3010) As Ordered ONE (07:16)
[2021-03-03] MEDS ORDERED: MIDAZOLAM INJ 2MG/2ML VIAL (J2250 PER 1MG) As Ordered ONE (07:16)
[2021-03-03] MEDS ORDERED: SUGAMMADEX SODIUM 500 MG/5 ML VIAL (BRIDION) As Ordered ONE (07:46)
[2021-03-03] MEDS ORDERED: ONDANSETRON 4MG/2ML VIAL As Ordered ONE (07:46)
[2021-03-03] MEDS ORDERED: ACETAMINOPHEN 1000MG 100ML IV BTL (OFIRMEV) (J0131 PER 10MG) As Ordered ONE (07:46)
[2021-03-03] MEDS ORDERED: dexameTHASONE 4 MG/ML 1ML VIAL (J1100 PER 1MG) As Ordered ONE (07:46)
[2021-03-03] MEDS ORDERED: METOCLOPRAMIDE INJ 10MG/2ML VIAL (J2765 PER 1) As Ordered ONE (07:46)
[2021-03-03] MEDS ORDERED: ONDANSETRON 4MG/2ML VIAL IV PRN ×2 (08:40→08:45)
[2021-03-03] MEDS ORDERED: METOCLOPRAMIDE INJ 10MG/2ML VIAL (J2765 PER 1) IV PRN (08:40)
[2021-03-03] MEDS ORDERED: LR 1,000 ML IV SCH (08:40)
[2021-03-03] MEDS ORDERED: PERCOCET 5MG/325MG TAB PO PRN (08:40)
[2021-03-03] MEDS ORDERED: fentaNYL 100 MCG/2 ML INJECTION (J3010) IV PRN (08:40)
[2021-03-03] MEDS: LR 1,000 ML IV SCH ×2 (10:41→18:51)
[2021-03-03] MEDS: HYDROcodone/APAP LIQUID 7.5-325MG 15ML UDC (LORTAB ELIXIR) PO PRN ×3 (10:50→19:49)
--- NOTE | 2021-03-03 14:45 | ROOPDOC ---
[facility] Report Of Operation Report of Operation DATE OF PROCEDURE: 03/03/21 PREPROCEDURE DIAGNOSES: Chronic adenotonsillar hypertrophy. POSTPROCEDURE DIAGNOSES: Chronic tonsillar hypertrophy PROCEDURE PERFORMED: Tonsillectomy SURGEON: MD Dario EDUCATION GENERAL MANAGER: Gabriella, ANESTHESIA: . ESTIMATED BLOOD LOSS: Approximately 5 mL. COMPLICATIONS: . REMARKS: . FINDINGS: SPECIMENS REMOVED: Right and left tonsil PROCEDURE NOTE: . Patient was seen in the office and was diagnosed with chronic adenotonsillar hypertrophy . Decision was made in consultation with the patient, after explanation of risks and benefits to undergo the above-named procedure. Patient was admitted through the same-day surgery program, taken to the operating room where general anesthetic was administered via intravenous injection. Patient was then intubated endotracheally. Tonsil gag was placed in the mouth and expanded. This was secured to a Gan stand. Red rubber catheter was placed through the nose and in the oropharynx for smoke evacuation. Right tonsil was grasped with an Allis forceps and retracted medially. Using electrocautery, the capsule was identified laterally. Tonsil was then removed from its fossa in an inferior to superior fashion. Once this was completed, several areas were cauterized. The left tonsil was then grasped with an Allis forceps and retracted medially. Using electrocautery, the capsule was identified laterally. Tonsil was removed from its fossa and inferior to superior fashion. The red rubber catheters brought up to the mouth and secured with a snap. Laryngeal mirror was placed the nasopharynx. There was no adenoid tissue. The red rubber was released and brought up through the nose. 2 tonsil sponges were soaked in 0.5% Marcaine with epinephrine, one was placed in each tonsil bed for several minutes and then removed. The gag was then released, removed from the mouth. The TMJ joint was checked. The patient was then allowed to recover from the anesthetic and was taken to the post anesthesia care area in stable condition. There were no complications during this procedure. DESCRIPTION OF PROCEDURE: . Kike Bishop MD Mar 03, 2021 14:45
[2021-03-04] VITALS: BP 135/79
[2021-03-04] MEDS: HYDROcodone/APAP LIQUID 7.5-325MG 15ML UDC (LORTAB ELIXIR) PO PRN ×3 (00:45→09:38)
[2021-03-04 04:00] VITALS: BP 134/81
[2021-03-04] MEDS: LR 1,000 ML IV SCH (04:10)
[2021-03-04 08:00] VITALS: BP 134/86
== END 2021-03-03 12:50 | disposition home or self-care (01) ==
LOC: M SDC 06:04 → M PED 09:55 → M SDC 12:50
PROVIDERS: ATTEND Otolaryngology
DX: J35.1 Hypertrophy of tonsils (principal); G47.30 Sleep apnea, unspecified
CPT/HCPCS: 42826; 81025; 88302; J0131; J1100; J2250; J2405; J2765; J3010

== ENCOUNTER → 2022-05-26 | Outpatient (REF) | payer OTHER ==
[2022-05-26 18:22] LABS: BASO # 0.1 10^3/uL (0.0-0.2); BASO % 0.4 % (0.0-1.0); EOS # 0.1 10^3/uL (0.0-0.5); HEMATOCRIT 39.5 % (36.0-47.0); HEMOGLOBIN 12.4 g/dl (12.0-15.5); LYMPH # 2.9 10^3/uL (1.5-5.0); LYMPH % 25.7 % (24.0-44.0); MEAN CORPUSCULAR HEMOGLOBIN 26.8 pg (27.0-33.0); MEAN CORPUSCULAR HGB CONC 31.4 g/dl (32.0-36.5); MEAN CORPUSCULAR VOLUME 85.5 fl (80.0-96.0); MONO # 0.9 10^3/uL (0.0-0.8); MONO % 7.9 % (2.0-8.0); NEUTROPHILS # 7.2 10^3/uL (1.5-8.5); NEUTROPHILS % 64.5 % (36.0-66.0); PLATELET COUNT, AUTOMATED 338 10^3/uL (150-450); RED BLOOD COUNT 4.62 10^6/uL (4.00-5.40); WHITE BLOOD COUNT 11.1 10^3/uL (4.0-10.0)
[2022-05-26 18:28] LABS: ALBUMIN 3.6 G/DL (3.2-5.2); ALKALINE PHOSPHATASE 69 U/L (46-116); ALT/SGPT 24 U/L (7.0-40); AST/SGOT 17 U/L (<34); BILIRUBIN,TOTAL 0.4 MG/DL (0.3-1.2); BLOOD UREA NITROGEN 14 MG/DL (9-23); CALCIUM LEVEL 8.9 MG/DL (8.5-10.1); CARBON DIOXIDE LEVEL 28 MMOL/L (20-31); CHLORIDE LEVEL 102 MMOL/L (98-107); CHOLESTEROL LEVEL 149 MG/DL (<200); CHOLESTEROL RISK RATIO 3.21 (<5); CREATININE FOR GFR 0.78 MG/DL (0.55-1.30); GLOMERULAR FILTRATION RATE > 60.0 (>60); GLUCOSE, FASTING 84 MG/DL (60-100); HDL CHOLESTEROL 46.3 MG/DL (>40); LDL CHOLESTEROL 53.5 MG/DL (<100); NON-HDL-C 103 MG/DL; POTASSIUM SERUM 4.2 MMOL/L (3.5-5.1); SODIUM LEVEL 138 MMOL/L (136-145); TOTAL PROTEIN 6.9 G/DL (5.7-8.2); TRIGLYCERIDES LEVEL 246 MG/DL (<150)
[2022-05-26 18:34] LABS: THYROID STIMULATING HORMONE 0.905 uIU/ML (0.55-4.78)
[2022-05-26 18:39] LABS: HEMOGLOBIN A1c 5.8 % (4.0-6.0)
== END ==
LOC: M SFHCCLAY 14:40
PROVIDERS: ATTEND Nurse Practitioner Family
DX: E66.01 Morbid (severe) obesity due to excess calories (principal); Z68.41 Body mass index [BMI] 40.0-44.9, adult; Z13.1 Encounter for screening for diabetes mellitus; Z82.49 Family history of ischemic heart disease and other diseases of the circulatory system

== ENCOUNTER → 2022-09-24 | Outpatient (REF) | payer OTHER | LOC: M SFHCCLAY 10:36 | PROVIDERS: ATTEND Nurse Practitioner Family | DX: Z53.9 Procedure and treatment not carried out, unspecified reason (principal) ==

== ENCOUNTER → 2022-11-17 | Outpatient (REF) | payer OTHER | LOC: M SFHCCLAY 07:56 | PROVIDERS: ATTEND Nurse Practitioner Family | DX: N92.6 Irregular menstruation, unspecified (principal) ==

== ENCOUNTER → 2022-12-11 | Outpatient (REF) | payer OTHER | LOC: M PLALAB 10:37 | PROVIDERS: ATTEND Advanced Practice Midwife | DX: Z53.9 Procedure and treatment not carried out, unspecified reason (principal) ==

== ENCOUNTER → 2022-12-11 | Outpatient (CLI) | payer OTHER ==
[2022-12-11 13:44] LABS: HEMATOCRIT 38.5 % (36.0-47.0); HEMOGLOBIN 12.4 g/dl (12.0-15.5); MEAN CORPUSCULAR HGB CONC 32.2 g/dl (32.0-36.5); MEAN CORPUSCULAR VOLUME 83.9 fl (80.0-96.0); PLATELET COUNT, AUTOMATED 288 10^3/uL (150-450); RED BLOOD COUNT 4.59 10^6/uL (4.00-5.40)
[2022-12-11 14:44] LABS: HIV 1&2 SCREEN NEGATIVE (NEGATIVE)
[2022-12-11 14:53] LABS: HEPATITIS C VIRUS ABY INDEX 0.04 INDEX (<0.8)
[2022-12-11 15:40] LABS: GC DNA AMPLIFICATION NEGATIVE (NEGATIVE)
== END ==
LOC: M PLALAB 11:15
PROVIDERS: ATTEND Advanced Practice Midwife
DX: Z34.01 Encounter for supervision of normal first pregnancy, first trimester (principal)

== ENCOUNTER → 2023-01-14 | Outpatient (REF) | payer OTHER | LOC: M PLALAB 09:41 | PROVIDERS: ATTEND Advanced Practice Midwife | DX: Z34.00 Encounter for supervision of normal first pregnancy, unspecified trimester (principal) ==

== ENCOUNTER → 2023-02-09 | Outpatient (CLI) | payer OTHER | LOC: M WHC 12:25 | PROVIDERS: ATTEND Advanced Practice Midwife | DX: O99.212 Obesity complicating pregnancy, second trimester (principal); Z3A.20 20 weeks gestation of pregnancy ==

== ENCOUNTER → 2023-04-09 | Outpatient (CLI) | payer OTHER ==
[2023-04-09 16:16] LABS: HEMOGLOBIN 11.4 g/dl (12.0-15.5); MEAN CORPUSCULAR HGB CONC 31.7 g/dl (32.0-36.5); MEAN CORPUSCULAR VOLUME 85.1 fl (80.0-96.0); PLATELET COUNT, AUTOMATED 315 10^3/uL (150-450); RED BLOOD COUNT 4.23 10^6/uL (4.00-5.40); WHITE BLOOD COUNT 11.9 10^3/uL (4.0-10.0)
== END ==
LOC: M PLALAB 11:55
PROVIDERS: ATTEND Advanced Practice Midwife
DX: O99.212 Obesity complicating pregnancy, second trimester (principal); Z3A.00 Weeks of gestation of pregnancy not specified

== ENCOUNTER → 2023-04-13 | Outpatient (CLI) | payer OTHER | LOC: M LAB 06:33 | PROVIDERS: ATTEND Advanced Practice Midwife | DX: R73.02 Impaired glucose tolerance (oral) (principal) ==

== ENCOUNTER → 2023-06-01 | Outpatient (REF) | payer OTHER | LOC: M LAB REF 14:45 | PROVIDERS: ATTEND Advanced Practice Midwife | DX: Z34.83 Encounter for supervision of other normal pregnancy, third trimester (principal) ==

== ENCOUNTER → 2023-06-18 | Outpatient (CLI) | payer OTHER | LOC: M WHC 15:10 | PROVIDERS: ATTEND Advanced Practice Midwife | DX: O24.419 Gestational diabetes mellitus in pregnancy, unspecified control (principal); Z3A.38 38 weeks gestation of pregnancy ==

== ENCOUNTER → 2023-11-05 | Outpatient (REF) | payer OTHER ==
[~2023-11-05] MED LIST changes: +ACET-683 PO; +IBUP80TA PO; -LR 1,000 ML IV ONE; +PREN1CHW PO
== END ==
LOC: M PLALAB 10:38
PROVIDERS: ATTEND Advanced Practice Midwife
DX: Z12.4 Encounter for screening for malignant neoplasm of cervix (principal); Z11.51 Encounter for screening for human papillomavirus (HPV); Z53.9 Procedure and treatment not carried out, unspecified reason

== ENCOUNTER → 2023-11-05 | Outpatient (CLI) | payer OTHER ==
[2023-11-05 14:52] LABS: HEMATOCRIT 39.7 % (36.0-47.0); MEAN CORPUSCULAR HEMOGLOBIN 25.4 pg (27.0-33.0); MEAN CORPUSCULAR HGB CONC 30.2 g/dl (32.0-36.5); MEAN CORPUSCULAR VOLUME 83.9 fl (80.0-96.0); PLATELET COUNT, AUTOMATED 303 10^3/uL (150-450); RED BLOOD COUNT 4.73 10^6/uL (4.00-5.40); WHITE BLOOD COUNT 9.1 10^3/uL (4.0-10.0)
[2023-11-05 15:14] LABS: ALKALINE PHOSPHATASE 75 U/L (46-116); ALT/SGPT 20 U/L (7.0-40); AST/SGOT 9 U/L (<34); BILIRUBIN,TOTAL 0.6 MG/DL (0.3-1.2); BLOOD UREA NITROGEN 17 MG/DL (9-23); CALCIUM LEVEL 9.1 MG/DL (8.5-10.1); CARBON DIOXIDE LEVEL 29 MMOL/L (20-31); CHLORIDE LEVEL 107 MMOL/L (98-107); CHOLESTEROL LEVEL 151 MG/DL (<200); CHOLESTEROL RISK RATIO 2.71 (<5); GLOMERULAR FILTRATION RATE > 60.0 (>60); GLUCOSE, FASTING 59 MG/DL (60-100); HDL CHOLESTEROL 55.6 MG/DL (>40); LDL CHOLESTEROL 77.2 MG/DL (<100); NON-HDL-C 95.4 MG/DL; POTASSIUM SERUM 4.5 MMOL/L (3.5-5.1); SODIUM LEVEL 140 MMOL/L (136-145); TOTAL PROTEIN 7.1 G/DL (5.7-8.2); TRIGLYCERIDES LEVEL 91 MG/DL (<150)
[2023-11-05 15:23] LABS: HEMOGLOBIN A1c 5.4 % (4.0-6.0)
== END ==
LOC: M PLALAB 11:19
PROVIDERS: ATTEND Advanced Practice Midwife
DX: Z12.4 Encounter for screening for malignant neoplasm of cervix (principal); Z11.51 Encounter for screening for human papillomavirus (HPV)
CPT/HCPCS: 36415; 80053; 80061; 83036; 85027; 87624; G0123

== ENCOUNTER → 2024-07-28 | Outpatient (REF) | payer OTHER | LOC: M SFHCCLAY 11:53 | PROVIDERS: ATTEND Physician Assistant | DX: R50.9 Fever, unspecified (principal) ==

== ENCOUNTER → 2024-11-08 | Outpatient (REF) | payer OTHER ==
[2024-11-10 15:23] LABS: HPV APTIMA Not Detected (Not Detected)
== END ==
LOC: M PLALAB 09:56
PROVIDERS: ATTEND Advanced Practice Midwife
DX: Z12.4 Encounter for screening for malignant neoplasm of cervix (principal)
CPT/HCPCS: 87624; G0123